=== PATIENT | male | born 2000 | race Caucasian/White ===

== ENCOUNTER 2019-02-08 10:42 | Emergency (ER) | payer OTHER ==
[~2019-02-08] VITALS: Ht 185.4 cm; Wt 83.3 kg
[2019-02-08] MEDS ORDERED: NS 1,000 ML IV SCH (11:16)
--- NOTE | 2019-02-08 11:33 | REP ---
Left shoulder four views: There is inferior dislocation of the humeral head. The acromioclavicular joint is unremarkable. No fractures are identified. Impression: Inferior dislocation of the humeral head. Electronically Signed by Lincoln Yanes MD 02/08/2019 11:25 A
[2019-02-08] MEDS ORDERED: KETAMINE HCL 200 MG/20 ML VIAL IV ONE (12:15)
[2019-02-08] MEDS ORDERED: KETOROLAC 30 MG/ML VIAL (J1885) IV ONE (12:15)
[2019-02-08] MEDS ORDERED: PROPOFOL 200 MG/20 ML VIAL IV PRN (12:15)
[2019-02-08 12:55] VITALS: BP 131/84
--- NOTE | 2019-02-08 12:55 | REP ---
Portable right shoulder single post reduction view: Comparison is the left shoulder study earlier today demonstrating humeral head dislocation. On the current study the humeral head has been satisfactorily reduced into the glenoid fossa. I suspect there is a Hill-Sachs lesion of the humeral head. Electronically Signed by Lincoln Yanes MD 02/08/2019 12:46 P
== END 2019-02-08 13:24 | disposition home or self-care (01) ==
LOC: M ED 10:42
DX: S43.035A Inferior dislocation of left humerus, initial encounter (principal); W01.0XXD Fall on same level from slipping, tripping and stumbling without subsequent striking against object, subsequent encounter; Y92.89 Other specified places as the place of occurrence of the external cause
CPT/HCPCS: 23650; 73020; 73030; 93041; 94760; 96374; 99285; J1885

== ENCOUNTER 2020-02-13 18:18 | Emergency (ER) | payer OTHER ==
[~2020-02-13] VITALS: Ht 185.4 cm; Wt 91.7 kg
[2020-02-13 20:52] VITALS: BP 120/74
--- NOTE | 2020-02-14 08:02 | REP ---
Clinical: Intermittent chest pain . Comparison: None . Findings: The mediastinum and cardiac silhouette are stable and within normal limits for portable technique. The lung warner are clear without acute consolidation, effusion, or pneumothorax. Skeletal structures are intact. Impression: No acute cardiopulmonary process appreciated. Electronically Signed by Herbert Rodriguez MD 02/14/2020 07:52 A
== END 2020-02-13 20:53 | disposition home or self-care (01) ==
LOC: M ED 18:18
DX: Z11.59 Encounter for screening for other viral diseases (principal); R07.9 Chest pain, unspecified; F17.290 Nicotine dependence, other tobacco product, uncomplicated
CPT/HCPCS: 71045; 99283; U0003